=== PATIENT | female | born 1960 | race African-American/Black ===

== ENCOUNTER 2019-08-01 11:41 | Day surgery (SDC) | payer MEDICARE, MEDICAID ==
[~2019-08-01] VITALS: Ht 162.6 cm; Wt 102.5 kg
[~2019-08-01 11:41] MED LIST: AMLO10TA80 PO; ASPI-1160 PO; ATEN50TA PO; ATOR-2 PO; CYCLOPENTOLATE HCL 1% OPHTH DROPS 2ML LEFTEYE SCH; DIPH25TA23 PO; FURO-152 PO; HYDR25TA PO; INSNOV SUBCUT; INSU100I24 SQ; LACTATED RINGERS 1,000 ML IV SCH; METF-414 PO; NITR0.4T49 SL; OMEP40CA34 PO; ONDANSETRON HCL 4MG/2ML INJ IV PRN; PHENYLEPHRINE HCL 10% OPHTH DROPS 5ML LEFTEYE ONE; POTA20TA82 PO; SOLI10TA PO; TROPICAMIDE 1% OPHTH DROPS 15ML LEFTEYE ONE
[2019-08-01] MEDS ORDERED: TETRACAINE 0.5% OPHTH DROPS 4ML ONE (12:00)
[2019-08-01] MEDS ORDERED: PHENYLEPHRINE HCL 2.5% OPHTH DROPS 2ML ONE (12:00)
[2019-08-01] MEDS ORDERED: PREDNISOLONE ACETATE 1% OPHTH DROPS 5ML ONE (12:00)
[2019-08-01] MEDS ORDERED: CIPROFLOXACIN 0.3% OPHTH SOLN 2.5ML ONE (12:00)
[2019-08-01] MEDS ORDERED: BALANCED SALT IRRIG SOLN 15ML ONE (12:00)
[2019-08-01] MEDS ORDERED: LIDOCAINE HCL/PF 2% 20 MG/ML 10ML VIAL ONE (12:00)
== END 2019-08-01 12:35 | disposition home or self-care (01) ==
LOC: OR 11:41
PROVIDERS: ATTEND Ophthalmology
DX: E11.36 Type 2 diabetes mellitus with diabetic cataract (principal); H25.89 Other age-related cataract; I10 Essential (primary) hypertension; E78.5 Hyperlipidemia, unspecified; K21.9 Gastro-esophageal reflux disease without esophagitis; F33.9 Major depressive disorder, recurrent, unspecified; M17.0 Bilateral primary osteoarthritis of knee; Z98.890 Other specified postprocedural states; Z79.899 Other long term (current) drug therapy; Z79.84 Long term (current) use of oral hypoglycemic drugs; Z79.4 Long term (current) use of insulin; Z91.013 Allergy to seafood
CPT/HCPCS: 66984; 82962; J3490; V2632

== ENCOUNTER 2024-11-14 15:02 | Emergency (ER) | payer OTHER, MEDICAID ==
[~2024-11-14] VITALS: Ht 162.6 cm; Wt 109.0 kg
[~2024-11-14 15:02] MED LIST changes: -CYCLOPENTOLATE HCL 1% OPHTH DROPS 2ML LEFTEYE SCH; -LACTATED RINGERS 1,000 ML IV SCH; +OMEP40CA20 PO; -OMEP40CA34 PO; -ONDANSETRON HCL 4MG/2ML INJ IV PRN; -PHENYLEPHRINE HCL 10% OPHTH DROPS 5ML LEFTEYE ONE; +POTA-205 PO; -POTA20TA82 PO; -TROPICAMIDE 1% OPHTH DROPS 15ML LEFTEYE ONE
[2024-11-14 15:09] VITALS: O2SAT 98
[2024-11-14 16:11] LABS: CHLORIDE 105 mEq/L (98-107); POTASSIUM 3.6 mEq/L (3.5-5.1); SODIUM 137 mEq/L (136-145)
[2024-11-14 16:12] LABS: CARBON DIOXIDE 20 mEq/L (21-32)
[2024-11-14 16:13] LABS: CALCIUM 9.8 mg/dL (8.7-10.4)
[2024-11-14 16:14] LABS: HEMATOCRIT. 43.6 % (36.0-48.0); HEMOGLOBIN. 13.6 g/dL (12.0-16.0); MEAN CORPUSCULAR HEMOGLOBIN 26.3 pg (28.0-32.0); MEAN CORPUSCULAR HGB CONC 31.3 g/dL (31.0-37.0); MEAN PLATELET VOLUME 9.7 fl (7.4-10.4); PLATELET 252 x1000/uL (130-400); RED BLOOD CELL COUNT 5.19 mill/uL (4.2-5.4); RED CELL DISTRIBUTION WIDTH 16.4 % (11.6-14.6); WHITE BLOOD COUNT 14.7 x1000/uL (4.5-11.0)
[2024-11-14 16:17] LABS: CREATININE 0.7 mg/dL (0.6-1.0); GLUCOSE 165 mg/dL (70-105)
[2024-11-14 16:18] LABS: UREA NITROGEN BLOOD 12 mg/dL (9-23)
[2024-11-14] MEDS: ONDANSETRON HCL 4MG/2ML INJ IV ONE (16:18)
[2024-11-14 16:19] LABS: ALANINE AMINOTRANSFERASE 22 IU/L (10-49); ALBUMIN 5.1 g/dL (3.2-4.8); ASPARTATE AMINOTRANSFERASE 26 IU/L (<34)
[2024-11-14 16:20] LABS: BILIRUBIN DIRECT 0.2 mg/dL (<=3.0); BILIRUBIN TOTAL 0.7 mg/dL (0.1-1.0); PROTEIN TOTAL 8.9 g/dL (6.0-8.3); TROPONIN I HIGH SENSITIVITY 6 ng/L (3.0-34)
[2024-11-14 16:30] LABS: DIFFERENTIAL COMMENT 1
[2024-11-14] MEDS: KETOROLAC 30MG/ML VIAL IV ONE (17:56)
[2024-11-14 18:39] VITALS: BP 129/75; PULSE 100; RESP 16; TEMP 36.6; O2SAT 96
[2024-11-14 18:54] LABS: TROPONIN I HIGH SENSITIVITY 6 ng/L (3.0-34)
[2024-11-14 21:45] LABS: ANISOCYTOSIS 1+; PLATELET ESTIMATE NORMAL
== END 2024-11-14 18:51 | disposition left against medical advice (07) ==
LOC: ER 15:02 → EDBEDREQ 18:21 → EDBEDREQTM 18:21 → ER 18:51
DX: A08.4 Viral intestinal infection, unspecified (principal); R07.89 Other chest pain; E11.9 Type 2 diabetes mellitus without complications; I10 Essential (primary) hypertension; I25.2 Old myocardial infarction; Z79.899 Other long term (current) drug therapy; Z79.84 Long term (current) use of oral hypoglycemic drugs; Z79.82 Long term (current) use of aspirin; Z91.013 Allergy to seafood
CPT/HCPCS: 99285; 74176; 96374; 71045; 96375; 80076; 80048; 83880; 85025; 85610; 85730; 84484; 36415; 93005; J1885; J2405